=== PATIENT | male | born 1995 | race Caucasian/White ===

== ENCOUNTER 2025-08-27 07:35 | Emergency (ER) | payer OTHER, SELFPAY ==
[2025-08-27 07:40] VITALS: BP 133/77; PULSE 75; RESP 16; TEMP 36.6; O2SAT 97
--- NOTE | 2025-08-27 08:54 | W.ED.GENAD ---
Discharge Plan Disposition Patient Disposition: Home Condition: Stable Discharge Details Clinical Impression: Abscess of right lower extremity Primary Care Provider: Jenniffer,Local ED Provider: Jose A Yarbrough Home Meds and New Rx's Prescriptions: New sulfamethoxazole-trimethoprim [Bactrim DS] 800-160 mg tablet 1 tab PO BID Qty: 14 0RF mupirocin [Centany] 2 % ointment 1 applic topical BID 10 Days Qty: 22 0RF chlorhexidine gluconate 4 % liquid 1 applic topical DAILY 14 Days Qty: 3800 0RF Rx Instructions: daily wash No Action multivitamin [Daily Multi-Vitamin] Tablet 1 tab PO DAILY Discharge Instructions Instructions: Skin Abscess Additional Instructions: There is concern that you may have MRSA. This is a type of staph skin infection. Given leg infection and symptoms in your nostrils I am concerned that you may be colonized. Treatment for colonization is as follows: ?Nasal decolonization with?[email or web address]+olonization&[email or web address]_link?ointment (2%) applied to nares twice daily for 5 to 10 days, and ?Topical body decolonization (one of the following): ?[email or web address]-nies-information?search=mrsa+olonization&[email or web address]&source=see_link?gluconate (2% or 4% solution): daily washes or use of a disposable impregnated cloth for 5 to 14 days, or ?Dilute bleach baths (one teaspoon bleach per gallon of water, or one-fourth cup bleach per one-fourth tub [approximately 13 gallons of water] for 15 minutes twice weekly) for approximately three months Treatment of the active infection consist of oral antibiotic. You have been started on Bactrim. Please be sure to complete the full course of antibiotic as prescribed. Please follow-up with your primary care physician. Call to schedule an appointment. Be sure to discuss tetanus immunization with your doctor. Return to the emergency department immediately for any worsening or new concerning symptoms. Stand Alone Forms: Portal Information, Work Release Discharge Data Discharge Date/Time-TO BE ENTERED AT DEPARTURE: 08/27/25 18:21 HPI General Mode of arrival: ambulatory. Date/Time Provider Initiated Documentation: 08/27/25 08:00. Limitations to Documentation: no limitations. Information obtained by: patient. HPI Narrative: HISTORY OF PRESENT ILLNESS This is a 29-year-old male with a history of no previous MRSA exposure presenting with concerns about a right lower leg infection. The patient reports that the issue began on Saturday when he initially thought it was an ingrown hair. However, the inflammation has been increasing in size. He works at a [employer] and is concerned about the potential for MRSA. The infection is located on the right upper lateral lower leg and has developed into an area of induration with surrounding erythema and central ulceration without active discharge, resembling a ruptured abscess. The lesion ruptured on Saturday after the patient applied pressure, resulting in the expulsion of blood and pus. He reports no pain in the affected area but experiences shooting pain above the site. The patient is uncertain about the status of his tetanus vaccination, estimating it has been seven years since his last shot. His primary care provider is [facility]. Additionally, the patient mentions a slight swelling in his right nostril, which appears to be improving. He has been manually removing scabs from the area and suspects he may be colonized with staph. The patient smokes marijuana and tobacco mixed together but does not use vape products. He has no allergies to antibiotics. Related Data Home Medications ?Medication ?Instructions ?Recorded ?Confirmed chlorhexidine gluconate 4 % 1 applic topical DAILY 14 days 08/27/25 topical liquid #3,800 mL multivitamin (Daily Multi-Vitamin 1 tab PO DAILY 08/27/25 08/27/25 tablet) mupirocin 2 % topical ointment 1 applic topical BID 10 days #22 08/27/25 (Centany) grams sulfamethoxazole 800 1 tab PO BID #14 tabs 08/27/25 mg-trimethoprim 160 mg tablet (Bactrim DS) Previous Rx's ?Medication ?Instructions ?Recorded chlorhexidine gluconate 4 % 1 applic topical DAILY 14 days 08/27/25 topical liquid #3,800 mL mupirocin 2 % topical ointment 1 applic topical BID 10 days #22 08/27/25 (Centany) grams sulfamethoxazole 800 1 tab PO BID #14 tabs 12/19/25 mg-trimethoprim 160 mg tablet (Bactrim DS) Allergies Allergy/AdvReac Type Severity Reaction Status Date / Time pollen extracts Allergy Mild Other (See Verified 08/27/25 07:42 Comment) General Stated Complaint: Cellulitis MISTY: 4 Review of Systems All systems reviewed & are unremarkable except as noted in HPI and below Constitutional Constitutional: Denies fever(s) Exam Const General: cooperative and no acute distress HENMT Mouth: moist mucous membranes Other: Bilateral nares with subtle inflammation Cardio Rate: regular rate and not tachycardic Rhythm: regular rhythm Skin General skin exam: no rashes or lesions noted Neuro General: patient alert, patient awake and tone normal Extrem General: no edema Other: Right lower lateral leg with ulcer and area of induration, no fluctuance Course Vital Signs Vital signs: Vital Signs Temperature 36.6 C 08/27/25 07:40 Pulse 75 08/27/25 07:40 Respiratory Rate 16 08/27/25 07:40 Blood Pressure 133/77 08/27/25 07:40 Pulse Oximetry 97 08/27/25 07:40 Temperature 36.6 C 08/27/25 07:40 Temperature Source Oral 08/27/25 07:40 Pulse 75 08/27/25 07:40 Respiratory Rate 16 08/27/25 07:40 Blood Pressure 133/77 08/27/25 07:40 Blood Pressure Position Sitting 08/27/25 07:40 Pulse Oximetry 97 08/27/25 07:40 Oxygen Delivery Method Room Air 08/27/25 07:40 Oxygen Flow Rate 0 08/27/25 07:40 Pain Level 6 08/27/25 07:40 Procedure Abscess Drainage Provider that performed the procedure: Jose A Yarbrough Medical Decision Making ASSESSMENT AND PLAN Initial Assessment: 29-year-old male with concern for right lower leg infection, initially thought to be an ingrown hair, now with increasing inflammation. Works at a [employer], concerned about MRSA. Differential Diagnosis: - MRSA: Potential exposure due to occupation. Antibiotic treatment planned. - Abscess ED Course: - Area of induration and surrounding erythema, central ulceration without active discharge noted. - Ultrasound performed and no significant fluid collection, no indication for I&D. - Initial dose of antibiotic was provided. - Usual and customary discharge instructions were reviewed with the patient. Final Assessment: Right lower leg abscess with potential MRSA exposure. Ultrasound performed, no active fluid collection noted. Advised to avoid occlusive dressings, use loose gauze or tape, and apply warm compresses. Antibiotic prescription provided. Verify tetanus status with primary care provider. Clinical Impression: - Right lower leg abscess - Nasal colonization with staphylococcus Disposition: - Follow-Up: Verify tetanus status with primary care provider. Clean nares and fingernails with provided solution. Patient Education: Advised to avoid occlusive dressings, use loose gauze or tape, apply warm compresses several times daily. Quit smoking marijuana and tobacco to reduce infection risk. This document was written with the assistance of [employer]GO Nichols. The patient consented to its use. PFSH All Active Problems Abscess of right lower extremity (Acute) Social History Smoking/Tobacco Use Status: Current every day Tobacco Type: pipe Smoking risk assessment performed?: Yes Alcohol Intake: never Drug use: Occasionally Substance use type: marijuana POCUS Exam (ED) Limited Soft Tissue Exam DATE OF EXAM: 08/27/25 TIME OF EXAM: 09:00 PROVIDER THAT PERFORMED THE STUDY: Jose A Yarbrough IS THIS A REPEAT EXAM DURING THIS ENCOUNTER: No LOCATION OF EXAM: Lower extremity/right REASON FOR EXAM: Pain, Redness and Swelling VISUALIZED STRUCTURES: Fascia, Skin and Subcutaneous tissue PERTINENT FINDINGS/IMPRESSION: Other impression: Old abscess with no significant fluid collection . Exam Complete
[2025-08-27] MEDS: Sulfameth/Trimeth DS TAB 1 TAB PO (08:55)
[2025-08-27 09:16] VITALS: BP 121/83; PULSE 63; RESP 18; TEMP 36.8; O2SAT 100
[2025-08-27 10:54] LABS: MRSA PCR Positive (Negative)
== END 2025-08-27 18:21 | disposition home or self-care (01) ==
LOC: ER 09:03
PROVIDERS: Emergency Provider Student in an Organized Health Care Education/Training Program
DX: L02.415 Cutaneous abscess of right lower limb (principal)
CPT/HCPCS: 99284 ×2; 76882; 87641